=== PATIENT | female | born 1975 | race Caucasian/White ===

== ENCOUNTER 2022-12-27 18:51 | Outpatient (REF) | payer OTHER, SELFPAY ==
--- NOTE | ~2022-12-27 | MR_ITS ---
EXAMINATION: MR WRIST WITHOUT CONTRAST, RIGHT CLINICAL INFORMATION: Right wrist pain and swelling. Pain with twisting. Evaluate for a triangular fibrocartilage complex tear. COMPARISON: None available. TECHNIQUE: MRI of the wrist was performed using routine sequences on a high-field scanner. FINDINGS: TRIANGULAR FIBROCARTILAGE: Attenuation through the radial aspect with a probable full-thickness defect adjacent to the distal radial attachment measuring up to 0.2 cm in ML dimension. Heterogeneity within the ulnar styloid attachment where there is a corticated ossification, likely indicating a remote, unfused ulnar styloid fracture. INTRINSIC LIGAMENTS: Intact. TENDONS/MEDIAN NERVE: Trace fluid within the extensor carpi radialis brevis and extensor carpi radialis longus tendon sheaths, consistent with minimal tenosynovitis. No transverse tendon tear or tendon retraction. Intact median nerve. ARTICULAR CARTILAGE/BONE: Remote ulnar styloid fracture as described above. No acute fracture or dislocation. No concerning lytic or blastic osseous lesion. Intact articular cartilage. JOINT FLUID/SOFT TISSUES: Small distal radial ulnar joint effusion. No abnormal soft tissue mass or fluid collection. MR/MR wrist RT wo con IMPRESSION: 1. Attenuation through the radial aspect of the triangular fibrocartilage complex with a probable full-thickness defect measuring 0.2 cm in ML dimension. Irregular tearing through the ulnar styloid attachment. Probable remote, unfused ulnar styloid fracture. Small distal radial ulnar joint effusion. 2. Minimal extensor carpi radialis brevis and extensor carpi radialis longus tenosynovitis. No transverse tendon tear or tendon retraction.
== END 2022-12-27 18:52 | disposition home or self-care (01) ==
LOC: HO.MRI 18:51
DX: S63.591A Other specified sprain of right wrist, initial encounter (principal)
CPT/HCPCS: 73221